=== PATIENT | male | born 1990 | race African-American/Black ===

== ENCOUNTER 2017-01-26 08:51 | Emergency (ER) | payer SELFPAY ==
[2017-01-26] MEDS ORDERED: Ibuprofen 200 MG TAB ONE (09:14)
== END 2017-01-26 09:32 | disposition home or self-care (01) ==
LOC: NAV ERS 08:51
DX: J02.9 Acute pharyngitis, unspecified (principal)
CPT/HCPCS: 87081; 87430; 99283

== ENCOUNTER 2017-02-07 10:06 | Emergency (ER) | payer SELFPAY ==
[2017-02-07 10:58] LABS: Bilirubin Negative (Negative); Blood, Urine Large (Negative); Clarity Clear (Clear); Glucose, Urine (Dipstick) Negative (Negative); Leukocyte Negative (Negative); Nitrite Negative (Negative); Protein, Urine (Dipstick) Negative (Neg-Trace)
[2017-02-07 11:06] LABS: Bacteria/HPF Rare-Few HPF (None Seen); Crystals/HPF RARE SODIUM URATE HPF (Negative); RBC/HPF GREATER THAN 50-TNTC HPF (0-3); Squamous Epithelial 0-3 HPF (0-3); WBC/HPF 0-3 HPF (0-3)
[2017-02-09 08:53] LABS: Chlamydia by PCR Not Detected (NotDetected); GC by PCR Not Detected (NotDetected)
== END 2017-02-07 11:41 | disposition home or self-care (01) ==
LOC: NAV ERS 10:06
DX: N36.8 Other specified disorders of urethra (principal)
CPT/HCPCS: 81003; 81015; 87491; 87591; 99283

== ENCOUNTER 2017-11-09 18:10 | Emergency (ER) | payer OTHER, SELFPAY ==
[2017-11-09] MEDS ORDERED: Ibuprofen 800 MG TAB ONE (18:57)
--- NOTE | 2017-11-09 19:16 | RAD ---
RIGHT SCAPULA 2 VIEWS: Date: 11/09/17 HISTORY: Injury to upper back with pain. FINDINGS: Scapula appears intact. The shoulder and AC joint appear unremarkable. Visualized right ribs appear i ntact. IMPRESSION: No acute findings. POS: [facility]
== END 2017-11-09 19:25 | disposition home or self-care (01) ==
LOC: NAV ERS 18:10
DX: S40.011A Contusion of right shoulder, initial encounter (principal); W01.0XXA Fall on same level from slipping, tripping and stumbling without subsequent striking against object, initial encounter
CPT/HCPCS: 96372

== ENCOUNTER 2018-04-21 12:00 | Emergency (ER) | payer SELFPAY ==
--- NOTE | 2018-04-21 12:39 | RAD ---
LEFT WRIST THREE VIEWS: History: Injury, left wrist pain. FINDINGS/IMPRESSION: No acute fracture or dislocation is identified. If symptoms do not improve, follow up exam should be obtained in 7-10 days. POS: [facility]
--- NOTE | 2018-04-21 12:45 | RAD ---
LEFT ELBOW FOUR VIEWS: History: Fall, left elbow pain. FINDINGS/IMPRESSION: No acute fracture or dislocation is identified. If symptoms do not improve, follow up exam should be obtained in 7-10 days. POS: [facility]
== END 2018-04-21 13:00 | disposition home or self-care (01) ==
LOC: NAV ERS 12:00
DX: S63.502A Unspecified sprain of left wrist, initial encounter (principal); S50.02XA Contusion of left elbow, initial encounter; W19.XXXA Unspecified fall, initial encounter